=== PATIENT | male | born 1975 | race Hispanic/Latino ===

== ENCOUNTER 2019-04-22 02:14 | Emergency (ER) | payer SELFPAY ==
[~2019-04-22] VITALS: Ht 172.7 cm; Wt 88.9 kg
[2019-04-22] MEDS ORDERED: MECLIZINE HCL 12.5 MG TAB ONE (02:49)
[2019-04-22] MEDS ORDERED: MECLIZINE HCL 12.5 MG TAB PO ONE (03:00)
[2019-04-22] MEDS ORDERED: DEXAMETHASONE 10MG/ML PF INJ ONE (03:00)
[2019-04-22] MEDS ORDERED: DEXAMETHASONE SOD PHOS 10 MG/1 ML VIAL IM ONE (03:00)
[2019-04-22] MEDS ORDERED: MEDROL4 MG PO (03:01)
[2019-04-22] MEDS ORDERED: MECLIZINE HCL12.5 MG PO (03:01)
--- NOTE | 2019-04-22 03:19 | Diagnostic Imaging Report ---
CT [facility] HISTORY: Dizziness COMPARISON: None. TECHNIQUE: Noncontrast axial scans were obtained from skull base to the vertex. Coronal and sagittal reconstructions obtained from the axial data. One or more of the following dose reduction techniques were used: Automated exposure control, adjustment of the mA and/or kV according to patient size, and/or utilization of iterative reconstruction technique. DISCUSSION: Scalp/Skull: Unremarkable. Brain sulci: Appropriate for patient's age. Ventricles: Normal in size and configuration. No hydrocephalus. Extra-axial spaces: No masses or fluid collections. Parenchyma: No abnormal densities. No mass, hemorrhage, or large vascular territory acute infarct. Dural sinuses: No abnormal densities. Sellar/Suprasellar region: Intact. Skull base: Intact. Incidental findings: None. IMPRESSION: No intracranial abnormalities. Signed by: Dr. Tenzin Cross M.D. on 04/22/2019 3:15 AM
== END 2019-04-22 03:33 | disposition home or self-care (01) ==
LOC: FSED 02:14
DX: H81.13 Benign paroxysmal vertigo, bilateral (principal)
CPT/HCPCS: 70450; 99283; J1100; J8597